=== PATIENT | female | born 1985 | race Caucasian/White ===

== ENCOUNTER 2021-06-13 18:07 | Emergency (ER) | payer BC ==
[~2021-06-13] VITALS: Ht 154.9 cm; Wt 68.0 kg
--- NOTE | 2021-06-13 18:51 | NUR ---
[email or web address], medical screening exam in progress
--- NOTE | 2021-06-13 18:57 | NUR ---
Patient is resting comfortably on gurney, NAD, pending x-[email or web address]@this time.
[2021-06-13] MEDS ORDERED: ACETAMINOPHEN ES 500 MG TABLET PO ONE (19:00)
[2021-06-13] MEDS ORDERED: ACETAMINOPHEN ES 500 MG TABLET ONE (19:04)
--- NOTE | 2021-06-13 19:08 | NUR ---
ASSUMED CARE FOR PT AT THIS TIME. WITH ORDERS FOR KNEE IMMOBILIZERS AND CRUTCHES. ER OUT OF CRUTCHES. NURSING NUCLEAR REACTOR TECHNICIAN NOTIFIED.
--- NOTE | 2021-06-13 19:28 | NUR ---
Applied knee immobilizer to L knee, education provided.
[2021-06-13] MEDS ORDERED: LIDO30CR TP (19:33)
--- NOTE | 2021-06-13 19:45 | NUR ---
Patient cleared for DC by ERMD. Written and verbal after care instructions given. Patient verbalizes understanding of instructions. Stressed follow up or return to ER for worsening s/s. Crutch training education done. Pt ambulated out of ED in crutches, steady gait, stable condition.
[2021-06-13 20:12] VITALS: BP 125/75
== END 2021-06-13 20:14 | disposition home or self-care (01) ==
LOC: ER 18:15
DX: S83.92XA Sprain of unspecified site of left knee, initial encounter (principal); X58.XXXA Exposure to other specified factors, initial encounter; Y92.89 Other specified places as the place of occurrence of the external cause
CPT/HCPCS: A4663; A9150